=== PATIENT | male | born 1955 | race Caucasian/White ===

== ENCOUNTER 2017-10-24 21:06 | Emergency (ER) | payer MEDICARE ==
[~2017-10-24 21:06] MED LIST: CEPH-368 PO; CINA60TA PO; CLOP75TA52 PO; GABA-826 PO; HYDR-3237 PO; INSU100C SQ-INSULIN; LANT500T PO; LORA10TA72 PO; RANI150T8 PO; SIMV10TA3 PO; VIT D
[2017-10-24] MEDS ORDERED: INSU300I SC (22:31)
[2017-10-24] MEDS ORDERED: INSU100C5 SQ-INSULIN (22:31)
[2017-10-24] MEDS ORDERED: OXYC-307 PO (22:31)
[2017-11-21] MEDS ORDERED: NEOSPORIN OINT, 15GM ONE (18:59)
[2017-11-21] MEDS ORDERED: EPINEPHRINE 1 MG/ML, 1ML ONE (18:59)
[2017-11-21] MEDS ORDERED: BUPIVACAINE/PF 0.5% ONE (18:59)
== END 2017-10-24 21:07 | disposition home or self-care (01) ==
LOC: ED 21:06
DX: Z53.21 Procedure and treatment not carried out due to patient leaving prior to being seen by health care provider (principal)
CPT/HCPCS: 76001; J0171; J3490

== ENCOUNTER 2017-11-11 10:02 | Inpatient (IN) | payer MEDICARE ==
[~2017-11-11] VITALS: Ht 170.2 cm; Wt 62.7 kg
[~2017-11-11 10:02] MED LIST changes: +INSU100C5 SQ-INSULIN; +INSU300I SC; +OXYC-307 PO
[2017-11-11 11:28] LABS: PH, VENOUS 7.313 pH (7.320-7.420)
[2017-11-11] MEDS ORDERED: SODIUM CHLORIDE 0.9% 1,000ML IVBOLUS ONE (11:30)
[2017-11-11] MEDS ORDERED: SODIUM CHLORIDE FLUSH 10ML SYR IVF ONE (11:30)
[2017-11-11 11:36] LABS: HEMATOCRIT 31.7 % (39.2-51.8); HEMOGLOBIN 10.2 g/dL (13.7-18.0)
[2017-11-11] MEDS ORDERED: MULT1CAP24 PO (11:40)
[2017-11-11 11:42] LABS: ASPARTATE AMINO TRANSFERASE 13 U/L (15-37); BLOOD UREA NITROGEN 50 mg/dL (7-18)
[2017-11-11] MEDS ORDERED: AMPICILLIN/SULBACTAM 3 GM in SODIUM CHLORIDE 0.9% 100 ML IV ONE (13:00)
[2017-11-11] MEDS: SODIUM CHLORIDE 0.9% 1,000ML IVBOLUS ONE ×2 (13:15→13:40)
[2017-11-11] MEDS ORDERED: VANCOMYCIN PER PHARMACY MC ONE (14:00)
[2017-11-11] MEDS ORDERED: VANCOMYCIN 1,500 MG in SODIUM CHLORIDE 0.9% 250 ML IV ONE (14:00)
[2017-11-11] MEDS ORDERED: SODIUM CHLORIDE 0.9% 1,000 ML IV SCH (14:44)
[2017-11-11] MEDS ORDERED: hydrALAzine 20 MG/ML, 1ML IVPush PRN (15:00)
[2017-11-11] MEDS ORDERED: VANCOMYCIN PER PHARMACY MC PRN (15:00)
[2017-11-11] MEDS ORDERED: ONDANSETRON 2MG/ML, 2ML IVPush PRN (15:00)
[2017-11-11] MEDS ORDERED: CINACALCET HCL 60 MG PO SCH (15:30)
[2017-11-11] MEDS: INSULIN ASPART 100 UNITS/ML, PEN SQ-INSULIN SCH ×2 (16:00→22:20)
[2017-11-11] MEDS ORDERED: PHARMACOKINETIC MONITORING MC PRN (16:30)
[2017-11-11 17:30] VITALS: BP 111/59
[2017-11-11] MEDS ORDERED: AMPICILLIN/SULBACTAM 3 GM in SODIUM CHLORIDE 0.9% 100 ML IV SCH (19:00)
[2017-11-11 20:36] LABS: HEP B SURF. AB 260.2 mIU/mL (0.0-10.0)
[2017-11-11] MEDS ORDERED: FAMOTIDINE 20 MG TABLET PO SCH (21:00)
[2017-11-11] MEDS ORDERED: INSULIN DETEMIR 100 UNITS/ML, PEN SQ-INSULIN SCH (21:00)
[2017-11-11 21:30] VITALS: BP 101/52
[2017-11-11] MEDS: FAMOTIDINE 20 MG TABLET PO SCH (22:17)
[2017-11-11] MEDS: HEPARIN 5,000 UNITS/ML, 1ML SQ SCH (22:19)
[2017-11-12 02:00] VITALS: BP_SYST 101; BP_SYST 91; BP_DIAS 28; BP_DIAS 32
[2017-11-12] MEDS ORDERED: SODIUM CHLORIDE 0.9%, 500ML IVBOLUS ONE (03:00)
[2017-11-12 04:45] VITALS: BP 97/57
[2017-11-12] MEDS: HEPARIN 5,000 UNITS/ML, 1ML SQ SCH ×3 (06:35→21:05)
[2017-11-12 06:44] LABS: HEMATOCRIT 29.3 % (39.2-51.8); HEMOGLOBIN 9.5 g/dL (13.7-18.0); WHITE BLOOD COUNT 9.5 x10^3/uL (3.4-10)
[2017-11-12 06:57] LABS: ASPARTATE AMINO TRANSFERASE 19 U/L (15-37); BLOOD UREA NITROGEN 22 mg/dL (7-18)
[2017-11-12] MEDS: INSULIN ASPART 100 UNITS/ML, PEN SQ-INSULIN SCH ×4 (07:00→21:06)
[2017-11-12] MEDS: ASPIRIN 81 MG TABLET EC PO SCH (07:00)
[2017-11-12] MEDS ORDERED: DEXTROSE 50%, 50ML SYRINGE ONE (07:19)
[2017-11-12] MEDS ORDERED: DEXTROSE 50%, 50ML SYRINGE IVPush ONE ×2 (07:30→11:30)
[2017-11-12 07:50] VITALS: BP 102/50
[2017-11-12] MEDS: FOLIC ACID PO SCH (07:51)
[2017-11-12] MEDS: VIT C PO SCH (07:51)
[2017-11-12] MEDS: [UNRECOGNIZED DRUG - OTHER] PO SCH (07:51)
[2017-11-12] MEDS: MULTIVIT PO SCH (07:51)
[2017-11-12] MEDS: ZINC PO SCH (07:51)
[2017-11-12] MEDS: DEXTROSE 10% 1,000 ML IV SCH ×2 (10:16→23:56)
[2017-11-12] MEDS: HYDROcodone/APAP 5/325 TABLET PO PRN ×3 (12:52→23:51)
[2017-11-12] MEDS ORDERED: AMPICILLIN/SULBACTAM 3 GM in SODIUM CHLORIDE 0.9% 100 ML IV SCH (13:00)
[2017-11-12 14:50] VITALS: BP 95/60
[2017-11-12] MEDS: NICOTINE 21 MG/24 HR PATCH.TD24 TD SCH (17:14)
[2017-11-12] MEDS ORDERED: CINA30TA2 PO (18:25)
[2017-11-12 19:54] VITALS: BP 101/66
[2017-11-12] MEDS: FAMOTIDINE 20 MG TABLET PO SCH (21:05)
[2017-11-13] MEDS: AMPICILLIN/SULBACTAM 3 GM in SODIUM CHLORIDE 0.9% 100 ML IV SCH ×2 (01:55→14:24)
[2017-11-13 02:30] VITALS: BP 128/74
[2017-11-13 05:20] LABS: HEMATOCRIT 28.3 % (39.2-51.8); HEMOGLOBIN 9.1 g/dL (13.7-18.0); WHITE BLOOD COUNT 5.1 x10^3/uL (3.4-10)
[2017-11-13] MEDS: HEPARIN 5,000 UNITS/ML, 1ML SQ SCH ×3 (05:50→21:16)
[2017-11-13] MEDS: ASPIRIN 81 MG TABLET EC PO SCH (05:50)
[2017-11-13 05:51] LABS: BLOOD UREA NITROGEN 30 mg/dL (7-18)
[2017-11-13 05:55] LABS: ASPARTATE AMINO TRANSFERASE 26 U/L (15-37)
[2017-11-13] MEDS ORDERED: VANCOMYCIN 1,500 MG in SODIUM CHLORIDE 0.9% 250 ML IV ONE (07:00)
[2017-11-13 07:43] VITALS: BP 118/56
[2017-11-13] MEDS ORDERED: INSULIN ASPART 100 UNITS/ML, PEN SQ-INSULIN ONE (08:00)
[2017-11-13] MEDS ORDERED: DEXTROSE 5% 1,000 ML IV SCH (08:00)
[2017-11-13] MEDS: INSULIN ASPART 100 UNITS/ML, PEN SQ-INSULIN SCH ×4 (08:09→21:00)
[2017-11-13] MEDS: ZINC PO SCH (09:00)
[2017-11-13] MEDS: [UNRECOGNIZED DRUG - OTHER] PO SCH (09:00)
[2017-11-13] MEDS: VIT C PO SCH (09:00)
[2017-11-13] MEDS: FOLIC ACID PO SCH (09:00)
[2017-11-13] MEDS: MULTIVIT PO SCH (09:00)
[2017-11-13] MEDS: CINACALCET 30 MG TABLET PO SCH (10:20)
[2017-11-13 13:43] VITALS: BP 85/46
[2017-11-13] MEDS ORDERED: SODIUM CHLORIDE 0.9%, 500ML IVBOLUS ONE (14:00)
[2017-11-13] MEDS: SODIUM CHLORIDE 0.9% 1,000 ML IV SCH (14:23)
[2017-11-13 14:54] VITALS: BP 102/53
[2017-11-13 14:58] VITALS: BP 103/55
[2017-11-13] MEDS: HYDROcodone/APAP 5/325 TABLET PO PRN (15:16)
[2017-11-13] MEDS: NICOTINE 21 MG/24 HR PATCH.TD24 TD SCH (15:19)
[2017-11-13] MEDS: morphine SULFATE 10 MG/ML, 1ML IVPush PRN (17:16)
[2017-11-13 20:22] VITALS: BP 120/77
[2017-11-13] MEDS: FAMOTIDINE 20 MG TABLET PO SCH (21:16)
[2017-11-14 02:22] VITALS: BP 133/79
[2017-11-14] MEDS: SODIUM CHLORIDE 0.9% 1,000 ML IV SCH (02:27)
[2017-11-14] MEDS: ASPIRIN 81 MG TABLET EC PO SCH (05:55)
[2017-11-14] MEDS: HEPARIN 5,000 UNITS/ML, 1ML SQ SCH ×3 (05:55→23:04)
[2017-11-14 07:15] VITALS: BP 129/82
[2017-11-14] MEDS: INSULIN ASPART 100 UNITS/ML, PEN SQ-INSULIN SCH ×4 (08:42→21:06)
[2017-11-14] MEDS: FOLIC ACID PO SCH (09:00)
[2017-11-14] MEDS: VIT C PO SCH (09:00)
[2017-11-14] MEDS: MULTIVIT PO SCH (09:00)
[2017-11-14] MEDS: [UNRECOGNIZED DRUG - OTHER] PO SCH (09:00)
[2017-11-14] MEDS: ZINC PO SCH (09:00)
[2017-11-14] MEDS: CINACALCET 30 MG TABLET PO SCH (12:30)
[2017-11-14 13:32] VITALS: BP 121/77
[2017-11-14] MEDS ORDERED: PIPERACILLIN/TAZO/PMX 3.375GM 50 ML IV SCH (14:30)
[2017-11-14] MEDS: HYDROcodone/APAP 5/325 TABLET PO PRN (14:31)
[2017-11-14] MEDS ORDERED: AMPICILLIN/SULBACTAM 3 GM in SODIUM CHLORIDE 0.9% 100 ML IV SCH (16:00)
[2017-11-14] MEDS: PIPERACILLIN/TAZO/PMX 2.25GM 50 ML IV SCH ×2 (16:49→21:05)
[2017-11-14] MEDS: NICOTINE 21 MG/24 HR PATCH.TD24 TD SCH (16:49)
[2017-11-14] MEDS ORDERED: LACTULOSE 20 GM/30 ML UDC PO ONE (17:00)
[2017-11-14 18:41] VITALS: BP 108/62
[2017-11-14] MEDS: FAMOTIDINE 20 MG TABLET PO SCH (21:05)
[2017-11-15 01:34] VITALS: BP 126/78
[2017-11-15] MEDS: PIPERACILLIN/TAZO/PMX 2.25GM 50 ML IV SCH ×3 (03:07→19:47)
[2017-11-15] MEDS: ASPIRIN 81 MG TABLET EC PO SCH (06:07)
[2017-11-15] MEDS: HEPARIN 5,000 UNITS/ML, 1ML SQ SCH ×3 (06:07→21:33)
[2017-11-15] MEDS: INSULIN ASPART 100 UNITS/ML, PEN SQ-INSULIN SCH ×4 (07:00→21:33)
[2017-11-15 08:44] LABS: HEMATOCRIT 31.9 % (39.2-51.8); HEMOGLOBIN 10.4 g/dL (13.7-18.0); WHITE BLOOD COUNT 6.5 x10^3/uL (3.4-10)
[2017-11-15 08:55] LABS: ASPARTATE AMINO TRANSFERASE 21 U/L (15-37); BLOOD UREA NITROGEN 29 mg/dL (7-18)
[2017-11-15] MEDS: [UNRECOGNIZED DRUG - OTHER] PO SCH (09:00)
[2017-11-15] MEDS: FOLIC ACID PO SCH (09:00)
[2017-11-15] MEDS: ZINC PO SCH (09:00)
[2017-11-15] MEDS: VIT C PO SCH (09:00)
[2017-11-15] MEDS: MULTIVIT PO SCH (09:00)
[2017-11-15] MEDS: HYDROcodone/APAP 5/325 TABLET PO PRN ×2 (09:43→21:33)
[2017-11-15] MEDS: CINACALCET 30 MG TABLET PO SCH (09:48)
[2017-11-15 13:46] VITALS: BP 110/69
[2017-11-15] MEDS ORDERED: FENTANYL PF 100 MCG/2ML ONE ×2 (14:22→15:43)
[2017-11-15] MEDS ORDERED: LIDOCAINE-MPF 2% ,5ML ONE (14:44)
[2017-11-15] MEDS ORDERED: PROPOFOL 10 MG/ML, 20ML ONE (14:44)
[2017-11-15] MEDS ORDERED: ONDANSETRON 2MG/ML, 2ML ONE (14:44)
[2017-11-15] MEDS ORDERED: ACETAMINOPHEN 325 MG TABLET PO PRN (15:30)
[2017-11-15] MEDS ORDERED: OXYcodone 5 MG/5 ML ORAL.SOL UDC PO PRN (15:30)
[2017-11-15] MEDS ORDERED: HYDROmorphone 1 MG/ML, 1ML IV PRN (15:30)
[2017-11-15] MEDS ORDERED: OXYcodone 5 MG/5 ML ORAL.SOL UDC ONE (15:43)
[2017-11-15] MEDS: FENTANYL PF 100 MCG/2ML IV PRN ×2 (15:45→16:00)
[2017-11-15] MEDS: NICOTINE 21 MG/24 HR PATCH.TD24 TD SCH (17:40)
[2017-11-15 20:03] VITALS: BP 105/65
[2017-11-15] MEDS: FAMOTIDINE 20 MG TABLET PO SCH (21:33)
[2017-11-16] VITALS (7 sets, daily range): BP systolic 73–129; BP diastolic 50–78
[2017-11-16] MEDS ORDERED: SODIUM CHLORIDE 0.9%, 250ML IVBOLUS ONE (00:30)
[2017-11-16] MEDS: PIPERACILLIN/TAZO/PMX 2.25GM 50 ML IV SCH ×4 (00:54→20:08)
[2017-11-16] MEDS ORDERED: VANCOMYCIN PMX 1GM/200ML 200 ML IV ONE (05:00)
[2017-11-16] MEDS: ASPIRIN 81 MG TABLET EC PO SCH (05:57)
[2017-11-16] MEDS: DOCUSATE 100 MG CAPSULE PO PRN (05:57)
[2017-11-16] MEDS: HEPARIN 5,000 UNITS/ML, 1ML SQ SCH ×3 (05:58→22:00)
[2017-11-16] MEDS ORDERED: POLYETHYLENE GLYCOL 17 GM PACKET PO PRN (06:00)
[2017-11-16] MEDS: INSULIN ASPART 100 UNITS/ML, PEN SQ-INSULIN SCH ×4 (08:01→21:50)
[2017-11-16] MEDS: [UNRECOGNIZED DRUG - OTHER] PO SCH (09:00)
[2017-11-16] MEDS: ZINC PO SCH (09:00)
[2017-11-16] MEDS: MULTIVIT PO SCH (09:00)
[2017-11-16] MEDS: VIT C PO SCH (09:00)
[2017-11-16] MEDS: FOLIC ACID PO SCH (09:00)
[2017-11-16] MEDS: CINACALCET 30 MG TABLET PO SCH (11:16)
[2017-11-16] MEDS ORDERED: MAGNESIUM CITRATE 300ML ORAL SOL PO ONE (11:30)
[2017-11-16] MEDS: NICOTINE 21 MG/24 HR PATCH.TD24 TD SCH (15:36)
[2017-11-16] MEDS: FAMOTIDINE 20 MG TABLET PO SCH (21:50)
[2017-11-17 01:30] VITALS: BP 139/76
[2017-11-17] MEDS: PIPERACILLIN/TAZO/PMX 2.25GM 50 ML IV SCH ×5 (02:22→21:11)
[2017-11-17] MEDS: HEPARIN 5,000 UNITS/ML, 1ML SQ SCH ×3 (05:40→22:00)
[2017-11-17] MEDS: ASPIRIN 81 MG TABLET EC PO SCH (05:40)
[2017-11-17 06:40] VITALS: BP 119/72
[2017-11-17] MEDS: INSULIN ASPART 100 UNITS/ML, PEN SQ-INSULIN SCH ×4 (08:03→21:00)
[2017-11-17] MEDS: CINACALCET 30 MG TABLET PO SCH (08:03)
[2017-11-17] MEDS: FOLIC ACID PO SCH (08:04)
[2017-11-17] MEDS: [UNRECOGNIZED DRUG - OTHER] PO SCH (08:04)
[2017-11-17] MEDS: MULTIVIT PO SCH (08:04)
[2017-11-17] MEDS: ZINC PO SCH (08:04)
[2017-11-17] MEDS: VIT C PO SCH (08:04)
[2017-11-17 12:58] VITALS: BP 129/72
[2017-11-17] MEDS: NICOTINE 21 MG/24 HR PATCH.TD24 TD SCH (15:42)
[2017-11-17 20:00] VITALS: BP 118/63
[2017-11-17] MEDS: FAMOTIDINE 20 MG TABLET PO SCH (21:11)
[2017-11-17] MEDS: ACETAMINOPHEN 325 MG TABLET PO PRN (22:25)
[2017-11-18] MEDS ORDERED: hydrOXyzine 50MG TABLET PO PRN (01:00)
[2017-11-18] MEDS ORDERED: MINERA CRM, 60GM TP PRN (01:00)
[2017-11-18 02:00] VITALS: BP 122/70
[2017-11-18] MEDS: HEPARIN 5,000 UNITS/ML, 1ML SQ SCH ×3 (05:08→20:03)
[2017-11-18] MEDS: ASPIRIN 81 MG TABLET EC PO SCH (05:08)
[2017-11-18] MEDS: PIPERACILLIN/TAZO/PMX 2.25GM 50 ML IV SCH ×3 (05:08→20:00)
[2017-11-18 08:00] VITALS: BP 121/60
[2017-11-18] MEDS: ZINC PO SCH (08:27)
[2017-11-18] MEDS: VIT C PO SCH (08:27)
[2017-11-18] MEDS: MULTIVIT PO SCH (08:27)
[2017-11-18] MEDS: CINACALCET 30 MG TABLET PO SCH (08:27)
[2017-11-18] MEDS: FOLIC ACID PO SCH (08:27)
[2017-11-18] MEDS: [UNRECOGNIZED DRUG - OTHER] PO SCH (08:27)
[2017-11-18] MEDS: INSULIN ASPART 100 UNITS/ML, PEN SQ-INSULIN SCH ×4 (08:27→20:02)
[2017-11-18] MEDS ORDERED: PIPERACILLIN/TAZO 0.75 GM in SODIUM CHLORIDE 0.9% 50 ML IV SCH (09:00)
[2017-11-18 13:56] VITALS: BP 105/71
[2017-11-18] MEDS: NICOTINE 21 MG/24 HR PATCH.TD24 TD SCH (17:41)
[2017-11-18 20:00] VITALS: BP 100/62
[2017-11-18] MEDS: FAMOTIDINE 20 MG TABLET PO SCH (20:01)
[2017-11-19] MEDS: HYDROcodone/APAP 5/325 TABLET PO PRN ×2 (00:14→16:44)
[2017-11-19 02:00] VITALS: BP 99/63
[2017-11-19] MEDS: ASPIRIN 81 MG TABLET EC PO SCH (05:26)
[2017-11-19] MEDS: PIPERACILLIN/TAZO/PMX 2.25GM 50 ML IV SCH ×3 (05:26→20:22)
[2017-11-19] MEDS: HEPARIN 5,000 UNITS/ML, 1ML SQ SCH ×3 (05:26→22:11)
[2017-11-19 05:55] LABS: HEMATOCRIT 26.7 % (39.2-51.8); HEMOGLOBIN 8.8 g/dL (13.7-18.0); WHITE BLOOD COUNT 7.2 x10^3/uL (3.4-10)
[2017-11-19 06:03] LABS: ASPARTATE AMINO TRANSFERASE 24 U/L (15-37); BLOOD UREA NITROGEN 33 mg/dL (7-18); FERRITIN 157.5 ng/mL (26-388); TOTAL IRON BINDING CAPACITY 200 mcg/dL (250-450)
[2017-11-19 06:53] VITALS: BP 99/63
[2017-11-19] MEDS: CINACALCET 30 MG TABLET PO SCH (08:48)
[2017-11-19] MEDS: INSULIN ASPART 100 UNITS/ML, PEN SQ-INSULIN SCH ×4 (08:49→20:33)
[2017-11-19] MEDS: MULTIVIT PO SCH (08:50)
[2017-11-19] MEDS: VIT C PO SCH (08:50)
[2017-11-19] MEDS: FOLIC ACID PO SCH (08:50)
[2017-11-19] MEDS: ZINC PO SCH (08:50)
[2017-11-19] MEDS: [UNRECOGNIZED DRUG - OTHER] PO SCH (08:50)
[2017-11-19] MEDS ORDERED: INSULIN DETEMIR 100 UNITS/ML, PEN SQ-INSULIN SCH (10:30)
[2017-11-19 13:30] VITALS: BP 135/66
[2017-11-19] MEDS: NICOTINE 21 MG/24 HR PATCH.TD24 TD SCH (18:14)
[2017-11-19 19:53] VITALS: BP 126/74
[2017-11-19] MEDS: FAMOTIDINE 20 MG TABLET PO SCH (20:22)
[2017-11-19] MEDS: INSULIN DETEMIR 100 UNITS/ML, PEN SQ-INSULIN SCH (20:32)
[2017-11-20 00:53] VITALS: BP 114/72
[2017-11-20] MEDS: HEPARIN 5,000 UNITS/ML, 1ML SQ SCH ×3 (05:16→22:00)
[2017-11-20] MEDS: PIPERACILLIN/TAZO/PMX 2.25GM 50 ML IV SCH ×3 (05:16→21:28)
[2017-11-20] MEDS: ASPIRIN 81 MG TABLET EC PO SCH (05:16)
[2017-11-20 05:20] LABS: HEMATOCRIT 28.8 % (39.2-51.8); HEMOGLOBIN 9.3 g/dL (13.7-18.0); WHITE BLOOD COUNT 7.7 x10^3/uL (3.4-10)
[2017-11-20 05:34] LABS: BLOOD UREA NITROGEN 52 mg/dL (7-18)
[2017-11-20 05:43] LABS: ASPARTATE AMINO TRANSFERASE 26 U/L (15-37)
[2017-11-20 06:57] VITALS: BP 112/73
[2017-11-20] MEDS: INSULIN ASPART 100 UNITS/ML, PEN SQ-INSULIN SCH ×4 (07:00→21:14)
[2017-11-20] MEDS: [UNRECOGNIZED DRUG - OTHER] PO SCH (09:00)
[2017-11-20] MEDS: FOLIC ACID PO SCH (09:00)
[2017-11-20] MEDS: ZINC PO SCH (09:00)
[2017-11-20] MEDS: VIT C PO SCH (09:00)
[2017-11-20] MEDS: MULTIVIT PO SCH (09:00)
[2017-11-20] MEDS: INSULIN DETEMIR 100 UNITS/ML, PEN SQ-INSULIN SCH ×2 (09:21→21:13)
[2017-11-20] MEDS: HYDROcodone/APAP 5/325 TABLET PO PRN ×2 (09:21→16:30)
[2017-11-20] MEDS: GABAPENTIN 100 MG CAPSULE PO SCH (13:04)
[2017-11-20] MEDS: CINACALCET 30 MG TABLET PO SCH (13:05)
[2017-11-20 13:19] VITALS: BP 107/70
[2017-11-20] MEDS: NICOTINE 21 MG/24 HR PATCH.TD24 TD SCH (20:08)
[2017-11-20 20:25] VITALS: BP 96/57
[2017-11-20] MEDS: FAMOTIDINE 20 MG TABLET PO SCH (21:13)
[2017-11-21 02:01] VITALS: BP 115/72
[2017-11-21] MEDS: PIPERACILLIN/TAZO/PMX 2.25GM 50 ML IV SCH ×3 (05:25→22:58)
[2017-11-21] MEDS: HEPARIN 5,000 UNITS/ML, 1ML SQ SCH ×3 (05:28→23:00)
[2017-11-21] MEDS: ASPIRIN 81 MG TABLET EC PO SCH (05:28)
[2017-11-21] MEDS: morphine SULFATE 10 MG/ML, 1ML IVPush PRN ×2 (05:35→23:18)
[2017-11-21 06:15] VITALS: BP 124/69
[2017-11-21 06:36] LABS: HEMATOCRIT 28.4 % (39.2-51.8); HEMOGLOBIN 9.4 g/dL (13.7-18.0); WHITE BLOOD COUNT 6.7 x10^3/uL (3.4-10)
[2017-11-21 06:42] LABS: BLOOD UREA NITROGEN 37 mg/dL (7-18)
[2017-11-21] MEDS: INSULIN ASPART 100 UNITS/ML, PEN SQ-INSULIN SCH ×4 (07:00→22:59)
[2017-11-21] MEDS: FOLIC ACID PO SCH (07:39)
[2017-11-21] MEDS: VIT C PO SCH (07:39)
[2017-11-21] MEDS: ZINC PO SCH (07:39)
[2017-11-21] MEDS: MULTIVIT PO SCH (07:39)
[2017-11-21] MEDS: [UNRECOGNIZED DRUG - OTHER] PO SCH (07:39)
[2017-11-21] MEDS: HYDROcodone/APAP 5/325 TABLET PO PRN (08:13)
[2017-11-21] MEDS: CINACALCET 30 MG TABLET PO SCH (08:13)
[2017-11-21] MEDS: GABAPENTIN 100 MG CAPSULE PO SCH (08:13)
[2017-11-21] MEDS: INSULIN DETEMIR 100 UNITS/ML, PEN SQ-INSULIN SCH ×2 (08:13→22:59)
[2017-11-21 14:15] VITALS: BP 125/79
[2017-11-21] MEDS ORDERED: MIDAZOLAM 1 MG/ML, 2ML ONE (18:50)
[2017-11-21] MEDS ORDERED: FENTANYL PF 250 MCG/5ML ONE (18:51)
[2017-11-21] MEDS ORDERED: PROPOFOL 10 MG/ML, 20ML ONE (19:07)
[2017-11-21] MEDS ORDERED: ONDANSETRON 2MG/ML, 2ML IVPush PRN (20:00)
[2017-11-21] MEDS ORDERED: ACETAMINOPHEN 325 MG TABLET PO PRN (20:00)
[2017-11-21] MEDS ORDERED: OXYcodone 5 MG/5 ML ORAL.SOL UDC PO PRN (20:00)
[2017-11-21] MEDS ORDERED: FENTANYL PF 100 MCG/2ML IV PRN (20:00)
[2017-11-21] MEDS ORDERED: hydrALAzine 20 MG/ML, 1ML IV PRN (20:00)
[2017-11-21] MEDS ORDERED: HYDROmorphone 1 MG/ML, 1ML IV PRN (20:00)
[2017-11-21] MEDS ORDERED: LABETALOL 5MG/ML, 20ML IV PRN (20:00)
[2017-11-21 21:32] VITALS: BP 158/82
[2017-11-21] MEDS: FAMOTIDINE 20 MG TABLET PO SCH (22:58)
[2017-11-21] MEDS: NICOTINE 21 MG/24 HR PATCH.TD24 TD SCH (22:58)
[2017-11-22 02:10] VITALS: BP 85/53
[2017-11-22 05:42] LABS: HEMATOCRIT 30.1 % (39.2-51.8); HEMOGLOBIN 9.7 g/dL (13.7-18.0); WHITE BLOOD COUNT 7.3 x10^3/uL (3.4-10)
[2017-11-22 05:47] LABS: ASPARTATE AMINO TRANSFERASE 26 U/L (15-37); BLOOD UREA NITROGEN 45 mg/dL (7-18)
[2017-11-22] MEDS: ASPIRIN 81 MG TABLET EC PO SCH (06:00)
[2017-11-22] MEDS: HEPARIN 5,000 UNITS/ML, 1ML SQ SCH ×3 (06:00→21:47)
[2017-11-22] MEDS: PIPERACILLIN/TAZO/PMX 2.25GM 50 ML IV SCH ×3 (07:00→21:47)
[2017-11-22] MEDS: INSULIN ASPART 100 UNITS/ML, PEN SQ-INSULIN SCH ×4 (07:00→21:50)
[2017-11-22 07:20] VITALS: BP 126/77
[2017-11-22] MEDS: FOLIC ACID PO SCH (09:00)
[2017-11-22] MEDS: [UNRECOGNIZED DRUG - OTHER] PO SCH (09:00)
[2017-11-22] MEDS: VIT C PO SCH (09:00)
[2017-11-22] MEDS: ZINC PO SCH (09:00)
[2017-11-22] MEDS: MULTIVIT PO SCH (09:00)
[2017-11-22] MEDS: INSULIN DETEMIR 100 UNITS/ML, PEN SQ-INSULIN SCH ×2 (09:25→21:49)
[2017-11-22] MEDS: GABAPENTIN 100 MG CAPSULE PO SCH (09:26)
[2017-11-22] MEDS: CINACALCET 30 MG TABLET PO SCH (09:26)
[2017-11-22] MEDS: DOCUSATE 100 MG CAPSULE PO PRN ×3 (11:37→11:43)
[2017-11-22 12:35] VITALS: BP 115/75
[2017-11-22] MEDS: morphine SULFATE 10 MG/ML, 1ML IVPush PRN (14:38)
[2017-11-22 20:38] VITALS: BP 103/67
[2017-11-22] MEDS: NICOTINE 21 MG/24 HR PATCH.TD24 TD SCH (21:46)
[2017-11-22] MEDS: FAMOTIDINE 20 MG TABLET PO SCH (21:47)
[2017-11-22] MEDS: HYDROcodone/APAP 5/325 TABLET PO PRN (21:47)
[2017-11-23 01:10] VITALS: BP 95/62
[2017-11-23] MEDS: HEPARIN 5,000 UNITS/ML, 1ML SQ SCH ×2 (06:18→16:58)
[2017-11-23] MEDS: PIPERACILLIN/TAZO/PMX 2.25GM 50 ML IV SCH ×4 (06:18→22:42)
[2017-11-23] MEDS: ASPIRIN 81 MG TABLET EC PO SCH (06:18)
[2017-11-23 06:31] LABS: BLOOD UREA NITROGEN 29 mg/dL (7-18)
[2017-11-23 06:38] LABS: HEMATOCRIT 25.1 % (39.2-51.8); HEMOGLOBIN 8.4 g/dL (13.7-18.0); WHITE BLOOD COUNT 7.4 x10^3/uL (3.4-10)
[2017-11-23 07:00] VITALS: BP 111/67
[2017-11-23] MEDS: INSULIN ASPART 100 UNITS/ML, PEN SQ-INSULIN SCH ×4 (08:42→22:37)
[2017-11-23] MEDS: MULTIVIT PO SCH (08:48)
[2017-11-23] MEDS: FOLIC ACID PO SCH (08:48)
[2017-11-23] MEDS: ZINC PO SCH (08:48)
[2017-11-23] MEDS: VIT C PO SCH (08:48)
[2017-11-23] MEDS: [UNRECOGNIZED DRUG - OTHER] PO SCH (08:48)
[2017-11-23] MEDS: CINACALCET 30 MG TABLET PO SCH (09:01)
[2017-11-23] MEDS: GABAPENTIN 100 MG CAPSULE PO SCH (09:01)
[2017-11-23] MEDS: INSULIN DETEMIR 100 UNITS/ML, PEN SQ-INSULIN SCH ×2 (09:01→22:37)
[2017-11-23] MEDS: HYDROcodone/APAP 5/325 TABLET PO PRN (11:52)
[2017-11-23 12:15] VITALS: BP 115/73
[2017-11-23 20:58] VITALS: BP 112/75
[2017-11-23] MEDS: FAMOTIDINE 20 MG TABLET PO SCH (22:35)
[2017-11-23] MEDS: NICOTINE 21 MG/24 HR PATCH.TD24 TD SCH (22:36)
[2017-11-24 02:10] VITALS: BP 120/73
[2017-11-24] MEDS: HEPARIN 5,000 UNITS/ML, 1ML SQ SCH ×3 (02:11→16:16)
[2017-11-24 04:57] LABS: HEMATOCRIT 25.2 % (39.2-51.8); HEMOGLOBIN 8.3 g/dL (13.7-18.0)
[2017-11-24 05:07] LABS: BLOOD UREA NITROGEN 42 mg/dL (7-18)
[2017-11-24 05:10] LABS: ASPARTATE AMINO TRANSFERASE 22 U/L (15-37)
[2017-11-24] MEDS: PIPERACILLIN/TAZO/PMX 2.25GM 50 ML IV SCH ×3 (05:44→23:14)
[2017-11-24] MEDS: ASPIRIN 81 MG TABLET EC PO SCH (05:44)
[2017-11-24 06:42] VITALS: BP 110/71
[2017-11-24] MEDS: CINACALCET 30 MG TABLET PO SCH (08:42)
[2017-11-24] MEDS: GABAPENTIN 100 MG CAPSULE PO SCH (08:42)
[2017-11-24] MEDS: INSULIN ASPART 100 UNITS/ML, PEN SQ-INSULIN SCH ×4 (08:44→20:49)
[2017-11-24] MEDS: INSULIN DETEMIR 100 UNITS/ML, PEN SQ-INSULIN SCH ×2 (08:46→20:50)
[2017-11-24] MEDS: [UNRECOGNIZED DRUG - OTHER] PO SCH (08:46)
[2017-11-24] MEDS: FOLIC ACID PO SCH (08:46)
[2017-11-24] MEDS: VIT C PO SCH (08:46)
[2017-11-24] MEDS: MULTIVIT PO SCH (08:46)
[2017-11-24] MEDS: ZINC PO SCH (08:46)
[2017-11-24 12:04] VITALS: BP_SYST 121; BP_SYST 126; BP_DIAS 57; BP_DIAS 80
[2017-11-24 19:50] VITALS: BP 101/66
[2017-11-24] MEDS: FAMOTIDINE 20 MG TABLET PO SCH (20:49)
[2017-11-24] MEDS: NICOTINE 21 MG/24 HR PATCH.TD24 TD SCH (20:49)
[2017-11-25 02:38] VITALS: BP 109/52
[2017-11-25] MEDS: HEPARIN 5,000 UNITS/ML, 1ML SQ SCH ×3 (03:40→17:36)
[2017-11-25] MEDS: ASPIRIN 81 MG TABLET EC PO SCH (05:25)
[2017-11-25] MEDS: ACETAMINOPHEN 325 MG TABLET PO PRN ×2 (06:40→22:01)
[2017-11-25] MEDS: PIPERACILLIN/TAZO/PMX 2.25GM 50 ML IV SCH ×3 (06:40→23:04)
[2017-11-25] MEDS: INSULIN ASPART 100 UNITS/ML, PEN SQ-INSULIN SCH ×4 (07:57→21:05)
[2017-11-25 08:08] VITALS: BP 121/54
[2017-11-25] MEDS: FOLIC ACID PO SCH (09:07)
[2017-11-25] MEDS: MULTIVIT PO SCH (09:07)
[2017-11-25] MEDS: ZINC PO SCH (09:07)
[2017-11-25] MEDS: [UNRECOGNIZED DRUG - OTHER] PO SCH (09:07)
[2017-11-25] MEDS: VIT C PO SCH (09:07)
[2017-11-25] MEDS: GABAPENTIN 100 MG CAPSULE PO SCH (09:15)
[2017-11-25] MEDS: CINACALCET 30 MG TABLET PO SCH (09:15)
[2017-11-25] MEDS: INSULIN DETEMIR 100 UNITS/ML, PEN SQ-INSULIN SCH ×2 (09:16→21:05)
[2017-11-25] MEDS ORDERED: INSU100I28 SQ-INSULIN (12:24)
[2017-11-25] MEDS ORDERED: MINE454C2 TP (12:24)
[2017-11-25] MEDS ORDERED: GABA-826 PO (12:24)
[2017-11-25] MEDS ORDERED: ASPI-621 PO (12:24)
[2017-11-25 15:41] VITALS: BP 129/80
[2017-11-25 19:21] VITALS: BP 122/75
[2017-11-25] MEDS: NICOTINE 21 MG/24 HR PATCH.TD24 TD SCH (19:31)
[2017-11-25] MEDS: FAMOTIDINE 20 MG TABLET PO SCH (21:05)
[2017-11-26] MEDS: HYDROcodone/APAP 5/325 TABLET PO PRN
[2017-11-26 00:33] VITALS: BP 108/56
[2017-11-26] MEDS: HEPARIN 5,000 UNITS/ML, 1ML SQ SCH ×3 (00:57→17:00)
[2017-11-26] MEDS: ASPIRIN 81 MG TABLET EC PO SCH (06:09)
[2017-11-26] MEDS: INSULIN ASPART 100 UNITS/ML, PEN SQ-INSULIN SCH ×3 (07:00→17:27)
[2017-11-26] MEDS: PIPERACILLIN/TAZO/PMX 2.25GM 50 ML IV SCH ×2 (07:15→15:15)
[2017-11-26 08:12] VITALS: BP 120/61
[2017-11-26] MEDS: FOLIC ACID PO SCH (09:00)
[2017-11-26] MEDS: VIT C PO SCH (09:00)
[2017-11-26] MEDS: MULTIVIT PO SCH (09:00)
[2017-11-26] MEDS: ZINC PO SCH (09:00)
[2017-11-26] MEDS: [UNRECOGNIZED DRUG - OTHER] PO SCH (09:00)
[2017-11-26] MEDS: GABAPENTIN 100 MG CAPSULE PO SCH (09:18)
[2017-11-26] MEDS: CINACALCET 30 MG TABLET PO SCH (09:18)
[2017-11-26] MEDS: INSULIN DETEMIR 100 UNITS/ML, PEN SQ-INSULIN SCH (09:19)
[2017-11-26 14:00] VITALS: BP 128/64
== END 2017-11-26 17:44 | DRG 856 ==
LOC: ED 12:45 → EDIP 12:46 → ED 12:52 → 4WST 16:01 → 4EST 11-15 04:41
PROVIDERS: ADMIT Internal Medicine; ATTEND Hospitalist
PROC: 5A1D70Z Performance of Urinary Filtration, Intermittent, Less than 6 Hours Per Day (ICD-10-PCS; principal; 2017-11-11)
PROC: 5A1D70Z Performance of Urinary Filtration, Intermittent, Less than 6 Hours Per Day (ICD-10-PCS; 2017-11-13)
PROC: 0JBN0ZZ Excision of Right Lower Leg Subcutaneous Tissue and Fascia, Open Approach (ICD-10-PCS; 2017-11-15)
PROC: 5A1D70Z Performance of Urinary Filtration, Intermittent, Less than 6 Hours Per Day (ICD-10-PCS; 2017-11-15)
PROC: 5A1D70Z Performance of Urinary Filtration, Intermittent, Less than 6 Hours Per Day (ICD-10-PCS; 2017-11-18)
PROC: 5A1D70Z Performance of Urinary Filtration, Intermittent, Less than 6 Hours Per Day (ICD-10-PCS; 2017-11-20)
PROC: 0QPG04Z Removal of Internal Fixation Device from Right Tibia, Open Approach (ICD-10-PCS; 2017-11-21)
PROC: 0JBN0ZZ Excision of Right Lower Leg Subcutaneous Tissue and Fascia, Open Approach (ICD-10-PCS; 2017-11-21)
PROC: 5A1D70Z Performance of Urinary Filtration, Intermittent, Less than 6 Hours Per Day (ICD-10-PCS; 2017-11-22)
PROC: 5A1D70Z Performance of Urinary Filtration, Intermittent, Less than 6 Hours Per Day (ICD-10-PCS; 2017-11-25)
DX: T81.4XXA Infection following a procedure, initial encounter (principal); A41.9 Sepsis, unspecified organism; R65.21 Severe sepsis with septic shock; E11.00 Type 2 diabetes mellitus with hyperosmolarity without nonketotic hyperglycemic-hyperosmolar coma (NKHHC); G93.40 Encephalopathy, unspecified; E43 Unspecified severe protein-calorie malnutrition; J18.9 Pneumonia, unspecified organism; J90 Pleural effusion, not elsewhere classified; L89.153 Pressure ulcer of sacral region, stage 3; N18.6 End stage renal disease; E87.0 Hyperosmolality and hypernatremia; J98.11 Atelectasis; L03.312 Cellulitis of back [any part except buttock and flank]; I48.0 Paroxysmal atrial fibrillation; E11.22 Type 2 diabetes mellitus with diabetic chronic kidney disease; E11.40 Type 2 diabetes mellitus with diabetic neuropathy, unspecified; E11.65 Type 2 diabetes mellitus with hyperglycemia; E78.5 Hyperlipidemia, unspecified; Y83.8 Other surgical procedures as the cause of abnormal reaction of the patient, or of later complication, without mention of misadventure at the time of the procedure; E11.51 Type 2 diabetes mellitus with diabetic peripheral angiopathy without gangrene; E11.649 Type 2 diabetes mellitus with hypoglycemia without coma; D63.1 Anemia in chronic kidney disease; E87.5 Hyperkalemia; L89.619 Pressure ulcer of right heel, unspecified stage; L89.629 Pressure ulcer of left heel, unspecified stage; N25.0 Renal osteodystrophy; Z79.4 Long term (current) use of insulin; Z83.3 Family history of diabetes mellitus; Z99.2 Dependence on renal dialysis; Z87.81 Personal history of (healed) traumatic fracture; Z89.422 Acquired absence of other left toe(s); Y92.89 Other specified places as the place of occurrence of the external cause
CPT/HCPCS: 36415; 71010; 76700; 80053; 80061; 80069; 80202; 82010; 82306; 82728; 82803; 82947; 82962; 83036; 83540; 83550; 83605; 83735; 83970; 84100; 84439; 84443; 84550; 85014; 85018; 85025; 85610; 85730; 86704; 86706; 87040; 87070; 87077; 87186; 87205; 87340; 93005; 93306; 96361; 96374; J0295; J1644; J1815; J2250; J2405; J2543; J2704; J3010; J3370; J3490; J7070; J2270; J7030; J7040; J7050